=== PATIENT | female | born 1955 | race African-American/Black ===

== ENCOUNTER 2019-06-26 23:23 | Inpatient (IN) ==
[2019-06-26] MEDS ORDERED: DUONEB (A & A) INH ONE (23:24)
[2019-06-26] MEDS ORDERED: LASIX IV ONE (23:29)
[2019-06-26 23:38] LABS: BASO# 0.03 X1000 (0.0-0.2); BASO% 0.3 % (0.0-0.8); EOS# 0.58 X1000 (0.0-0.7); EOS% 6.5 % (0.0-10.0); IMM GRAN# 0.02 X1000 (0.0-0.04); IMM GRAN% 0.2 % (0.0-0.5); LYMPH# 3.57 X1000 (1.2-3.4); LYMPH% 40.1 % (20.5-51.1); MCH 31.2 PG (27-31); MCHC 31.8 g/dL (33-37); MONO# 0.81 X1000 (0.11-0.59); MONO% 9.1 % (1.7-9.3); MPV 12.7 FL (7.4-10.4); NEUT# 3.89 X1000 (1.4-6.5); NEUT% 43.8 % (42.2-75.2); PLT 148 X1000 (130-400); RBC 4.49 XMIL (4.2-5.4)
--- NOTE | 2019-06-26 23:38 | PROVIDER DOCUMENTATION ---
HPI-Respiratory General - General Chief Complaint: Shortness of Breath Stated Complaint: ASTHMA ATTACK Time Seen by Provider: 06/26/19 23:23 Source: patient Allergies/Adverse Reactions: Patient Allergies Allergy/AdvReac Type Severity Reaction Status Date / Time Penicillins Allergy Intermediate RASH Verified 10/04/18 14:14 Home Medications: Home Medication List Medication Instructions Recorded Confirmed Last Taken Type Hydrochlorothiazide 12.5 mg PO DAILY 01/15/12 10/04/18 10/05/14 History Multivitamin [Multivitamins] 1 tab PO BID 05/23/14 10/04/18 Unknown History Metformin [Glucophage] 500 mg PO BID 01/22/18 10/04/18 Unknown History Albuterol Sulfate [Proair Hfa] 2 puff INHALATION Q4H PRN 10/04/18 10/04/18 Unknown History Aspirin EC 81 mg PO DAILY 10/04/18 10/04/18 Unknown History Atorvastatin Calcium [Lipitor] 10 mg PO DAILY 10/04/18 10/04/18 Unknown History Escitalopram Oxalate [Lexapro] 10 mg PO DAILY 10/04/18 10/04/18 Unknown History Hydrocodone Bit/Acetaminophen 1 ea PO TID PRN 10/04/18 10/04/18 Unknown History [Hydrocodon-Acetaminophn 10-325] Lisinopril 5 mg PO DAILY 10/04/18 10/04/18 Unknown History Metoprolol [Lopressor] 50 mg PO BID 10/04/18 10/04/18 Unknown History Nitroglycerin Sl [Nitroglycerin] 0.4 mg SUBLINGUAL PRN PRN 10/04/18 10/04/18 Unknown History Tizanidine HCl 4 mg PO BID 10/04/18 10/04/18 Unknown History Varenicline [Chantix] 0.5 mg PO DIRECTED 10/04/18 10/04/18 Unknown History - History of Present Illness-Resp Nature of Presenting Problem: Patient is a 63 year old black female with history of HTN, S/P VT (07/2018), and asthma who presents by private care with worsening SOB, orthopnea, wheezing, and diaphoresis for past 2 days. Denies chest pain, fever, productive cough. Review of Systems - Adult - REVIEW OF SYSTEMS - ADULT Constitutional: denies: chills, fever Eyes: reports: no symptoms reported Ears, Nose, Mouth & Throat: denies: throat pain Cardiovascular: reports: orthopnea. denies: chest pain Respiratory: reports: cough, shortness of breath Gastrointestinal: denies: abdominal pain, diarrhea, nausea, vomiting Genitourinary: reports: no symptoms reported Musculoskeletal: reports: no symptoms reported Integumentary: reports: no symptoms reported Neurological: reports: no symptoms reported Psychiatric: reports: no symptoms reported Endocrine: reports: no symptoms reported Hematologic/Lymphatic: reports: no symptoms reported Allergic/Immunologic: reports: no symptoms reported All Other Systems: Reviewed and Negative Past History - Adult - PAST MEDICAL HISTORY-ADULT Review of Records: reports: Old Records Reviewed, Nursing Assessment Review, Medications Reviewed, Social history reviewed & non-contributory. Major Childhood Illnesses: reports: denies history Cardiovascular: reports: CAD, HTN Respiratory: reports: asthma, COPD, sleep apnea Gastrointestinal: reports: denies history Obstetrical/Gynecological: reports: denies history Genitourinary: reports: denies history Musculoskeletal: reports: denies history Neurological: reports: denies history Endocrine/Immune: reports: denies history Other Conditions: reports: denies history - PRIOR SURGERIES/PROCEDURES Surgical/Procedure History: reports: hysterectomy, BTL - IMMUNIZATION STATUS Childhood Immunizations: See Nurse Assessment Flu Vaccine: See Nurse Assessment - FAMILY HISTORY Family History: reviewed, not pertinent - SOCIAL HISTORY Smoking: quit greater than 1 year Substance Use: denies Alcohol Use Frequency: occasionally Living Situation: family Physical Exam-General - PHYSICAL EXAM-ADULT Initial Vital Signs Reviewed: Yes - CONSTITUTIONAL General Appearance: moderate distress, obese, other (dipahoretic) - EYES Eyes: other (clear) - NECK Neck: supple - RESPIRATORY Respiratory: decreased breath sounds, accessory muscle use, wheezing, other (labored respirations) - CARDIOVASCULAR Cardiovascular: regular rate, rhythm - GASTROINTESTINAL (ABDOMEN) Abdominal Exam: soft - LYMPHATIC Lymphatic: no adenopathy - MUSCULOSKELETAL Back Exam: no CVA tenderness Extremity: non-tender Peripheral Pulses: radial (R): 2+, radial (L): 2+ - SKIN Integumentary: normal turgor - NEUROLOGIC Neurologic: other (nonfocal) - PSYCHIATRIC Psych/Mental Status: oriented x 3, anxious - HEART Score HEART Score: History: Slightly Suspicious HEART Score: ECG: Normal HEART Score: Age: 45-65 Years HEART Score: Risk Factors for Atherosclerotic Disease: > or = 3 Risk Factors or History of Atherosclerotic Disease HEART Score: Troponin: < or = Normal Limit Total HEART Score:: 3 Progress - PLAN OF CARE/RESULTS Progress/Plan/Lab Results: Vital Signs - 8 hr 06/26/19 23:31 06/26/19 23:35 06/26/19 23:43 Temperature 98.6 F Pulse Rate 86 77 79 Respiratory Rate 30 H 22 25 H Blood Pressure 147/87 130/84 O2 Sat by Pulse Oximetry 82 L 94 L 99 Laboratory Results - last 24 hr 06/26/19 06/26/19 06/26/19 23:30 23:30 23:30 WBC 8.90 RBC 4.49 Hgb 14.0 Hct 44.0 MCV 98.0 MCH 31.2 H MCHC 31.8 L RDW Std Deviation 14.0 Plt Count 148 MPV 12.7 H Immature Gran % (Auto) 0.2 Neut % (Auto) 43.8 Lymph % (Auto) 40.1 [place] % (Auto) 9.1 Eos % (Auto) 6.5 Baso % (Auto) 0.3 Immature Gran # (Auto) 0.02 Neut # (Auto) 3.89 Lymph # (Auto) 3.57 H [place] # (Auto) 0.81 H Eos # (Auto) 0.58 Baso # (Auto) 0.03 Corrected WBC (Man) PT INR PTT (Actin FS) Specimen Type Sample Site pH pCO2 pO2 HCO3 Base Excess Oxyhemoglobin ABG O2 Sat (Calculated) ABG O2 Saturation ABG Carboxyhemoglobin ABG Methemoglobin Melchor Test A-a O2 Difference Total Hemoglobin Lactate Blood Gas Modality Vent Mode FiO2 % Inspiratory BiPAP Expiratory BiPAP Sodium Potassium Chloride Carbon Dioxide Anion Gap BUN Creatinine Estimated GFR/1.73 m2 BUN/Creatinine Ratio Glucose POC Glucose Calculated Osmolality Calcium Total Bilirubin AST ALT Alkaline Phosphatase Creatine Kinase Creatine Kinase Index CK-MB (CK-2) Troponin T High Sens 8 Wub-Q-Mnwtivemahv Pept 414 H Total Protein Albumin Globulin Albumin/Globulin Ratio Plasma Lactate Urine Source Urine Color Urine Turbidity Urine pH Ur Specific [place] Urine Protein Ur Glucose (Stick) Ur Ketones (Stick) Urine Blood Urine Nitrite Urine Bilirubin Urobilinogen Dipstick Urine Leukocytes Urine WBC (Auto) Urine RBC (Auto) U Epithel Cells (Auto) Urine Bacteria (Auto) 06/26/19 06/26/19 06/26/19 23:30 23:30 23:30 WBC RBC Hgb Hct MCV MCH MCHC RDW Std Deviation Plt Count MPV Immature Gran % (Auto) Neut % (Auto) Lymph % (Auto) [place] % (Auto) Eos % (Auto) Baso % (Auto) Immature Gran # (Auto) Neut # (Auto) Lymph # (Auto) [place] # (Auto) Eos # (Auto) Baso # (Auto) Corrected WBC (Man) PT INR PTT (Actin FS) Specimen Type Sample Site pH pCO2 pO2 HCO3 Base Excess Oxyhemoglobin ABG O2 Sat (Calculated) ABG O2 Saturation ABG Carboxyhemoglobin ABG Methemoglobin Melchor Test A-a O2 Difference Total Hemoglobin Lactate Blood Gas Modality Vent Mode FiO2 % Inspiratory BiPAP Expiratory BiPAP Sodium 141 Potassium 4.2 Chloride 102 Carbon Dioxide 27 Anion Gap 12 BUN 16 Creatinine 0.8 Estimated GFR/1.73 m2 > 60 BUN/Creatinine Ratio 20 Glucose 150 H POC Glucose Calculated Osmolality 285 Calcium 8.9 Total Bilirubin 0.20 AST 23 ALT 16 Alkaline Phosphatase 60 Creatine Kinase 199 H Creatine Kinase Index 1.3 CK-MB (CK-2) 2.66 Troponin T High Sens Tqi-R-Pqcnpmkfvre Pept Total Protein 7.2 Albumin 4.4 Globulin 3.0 Albumin/Globulin Ratio 2.0 Plasma Lactate 0.9 Urine Source Urine Color Urine Turbidity Urine pH Ur Specific [place] Urine Protein Ur Glucose (Stick) Ur Ketones (Stick) Urine Blood Urine Nitrite Urine Bilirubin Urobilinogen Dipstick Urine Leukocytes Urine WBC (Auto) Urine RBC (Auto) U Epithel Cells (Auto) Urine Bacteria (Auto) 06/26/19 06/26/19 06/26/19 23:30 23:30 23:47 WBC Cancelled RBC Cancelled Hgb Cancelled Hct Cancelled MCV Cancelled MCH Cancelled MCHC Cancelled RDW Std Deviation Cancelled Plt Count Cancelled MPV Cancelled Immature Gran % (Auto) Cancelled Neut % (Auto) Cancelled Lymph % (Auto) Cancelled [place] % (Auto) Cancelled Eos % (Auto) Cancelled Baso % (Auto) Cancelled Immature Gran # (Auto) Cancelled Neut # (Auto) Cancelled Lymph # (Auto) Cancelled [place] # (Auto) Cancelled Eos # (Auto) Cancelled Baso # (Auto) Cancelled Corrected WBC (Man) Cancelled PT 12.6 INR 0.90 PTT (Actin FS) 29.9 Specimen Type ARTERIAL Sample Site L RADIAL pH 7.36 pCO2 51 H* pO2 124 H HCO3 26.6 H Base Excess 2.3 Oxyhemoglobin 94.4 L ABG O2 Sat (Calculated) 18.9 ABG O2 Saturation 99.3 ABG Carboxyhemoglobin 3.80 H ABG Methemoglobin 1.1 Melchor Test YES A-a O2 Difference 97.0 Total Hemoglobin 14.1 Lactate 0.70 Blood Gas Modality BI PAP Vent Mode BIPAP FiO2 % 40.0 Inspiratory BiPAP 15.0 Expiratory BiPAP 6.0 Sodium Potassium Chloride Carbon Dioxide Anion Gap BUN Creatinine Estimated GFR/1.73 m2 BUN/Creatinine Ratio Glucose POC Glucose Calculated Osmolality Calcium Total Bilirubin AST ALT Alkaline Phosphatase Creatine Kinase Creatine Kinase Index CK-MB (CK-2) Troponin T High Sens Wex-H-Vkdtmlavqoo Pept Total Protein Albumin Globulin Albumin/Globulin Ratio Plasma Lactate Urine Source Urine Color Urine Turbidity Urine pH Ur Specific [place] Urine Protein Ur Glucose (Stick) Ur Ketones (Stick) Urine Blood Urine Nitrite Urine Bilirubin Urobilinogen Dipstick Urine Leukocytes Urine WBC (Auto) Urine RBC (Auto) U Epithel Cells (Auto) Urine Bacteria (Auto) 06/26/19 06/27/19 23:48 00:05 WBC RBC Hgb Hct MCV MCH MCHC RDW Std Deviation Plt Count MPV Immature Gran % (Auto) Neut % (Auto) Lymph % (Auto) [place] % (Auto) Eos % (Auto) Baso % (Auto) Immature Gran # (Auto) Neut # (Auto) Lymph # (Auto) [place] # (Auto) Eos # (Auto) Baso # (Auto) Corrected WBC (Man) PT INR PTT (Actin FS) Specimen Type Sample Site pH pCO2 pO2 HCO3 Base Excess Oxyhemoglobin ABG O2 Sat (Calculated) ABG O2 Saturation ABG Carboxyhemoglobin ABG Methemoglobin Melchor Test A-a O2 Difference Total Hemoglobin Lactate Blood Gas Modality Vent Mode FiO2 % Inspiratory BiPAP Expiratory BiPAP Sodium Potassium Chloride Carbon Dioxide Anion Gap BUN Creatinine Estimated GFR/1.73 m2 BUN/Creatinine Ratio Glucose POC Glucose 108 H Calculated Osmolality Calcium Total Bilirubin AST ALT Alkaline Phosphatase Creatine Kinase Creatine Kinase Index CK-MB (CK-2) Troponin T High Sens Lwm-Z-Aifhsrsivwn Pept Total Protein Albumin Globulin Albumin/Globulin Ratio Plasma Lactate Urine Source CLEAN CATCH Urine Color STRAW Urine Turbidity CLEAR Urine pH 6.5 Ur Specific [place] 1.012 Urine Protein 100 A Ur Glucose (Stick) NEGATIVE Ur Ketones (Stick) NEGATIVE Urine Blood NEGATIVE Urine Nitrite NEGATIVE Urine Bilirubin NEGATIVE Urobilinogen Dipstick NORMAL Urine Leukocytes NEGATIVE Urine WBC (Auto) <10 Urine RBC (Auto) <10 U Epithel Cells (Auto) <10 Urine Bacteria (Auto) NEGATIVE Orders Category Date Time Status Cardiac Monitoring DIRECTED Care 06/26/19 23:30 Active Cardiac Monitoring NOW Care 06/26/19 23:40 Active FSBS/Accucheck Result NOW Care 06/26/19 23:36 Active IV Insertion NOW Care 06/26/19 23:40 Completed NEWS Score >or=5:Order NEWS Bundle S.O. NOW Care 06/26/19 23:39 Completed Notify Provider of NEWS Score NOW Care 06/26/19 23:40 Active CHEST-1 VIEW [RAD] Stat Exams 06/26/19 23:42 Taken ABG [RESP] Routine Lab 06/26/19 23:47 Completed BLOOD CULTURE [BLDCUL] Stat Lab 06/27/19 00:12 Ordered CBC WITH ELECTRONIC DIFF [HEME] Stat Lab 06/26/19 23:30 Completed CK PROFILE [SP CHEM] Stat Lab 06/26/19 23:30 Results CMP [COMPREHENSIVE METABOLIC PANEL] [CHEM] Stat Lab 06/26/19 23:30 Completed LACTATE, PLASMA [CHEM] Q3H Lab 06/26/19 23:30 Completed LACTATE, PLASMA [CHEM] Q3H Lab 06/27/19 02:45 Uncollected LACTATE, PLASMA [CHEM] Q3H Lab 06/27/19 05:45 Uncollected PROTIME WITH INR [COAG] Stat Lab 06/26/19 23:30 Completed PTT [COAG] Stat Lab 06/26/19 23:30 Completed TROPONIN T HIGH SENSITIVITY Stat Lab 06/26/19 23:30 Completed URINALYSIS W/POSS RFLX CULT [URINALYSIS] Stat Lab 06/27/19 00:05 Received bnp [PRO B-NATRIURETIC PEPTIDE] Stat Lab 06/26/19 23:30 Completed Albuterol 2.5MG/Ipratrop 0.5MG [Duoneb (A & A)] Med 06/26/19 23:24 Disconti nued 3 ml INH NOW ONE Furosemide [Lasix] Med 06/26/19 23:29 Discontinued 60 mg IV NOW ONE Methylprednisolone Sod Succ [Solu-Medrol] Med 06/27/19 00:19 Discontinued 125 mg IV STAT ONE Rocephin 1 gm/Ns IV Now Med 06/27/19 00:26 Ordered CefTRIAXONE [Rocephin] 1 gm 0.9% Sodium Chloride Inj [Ns] 50 ml IV NOW Aerosol Treatments Routine Oth 06/26/19 23:24 Completed Aerosol Treatments Stat Oth 06/26/19 23:24 Completed BIPAP Stat Oth 06/26/19 23:28 Completed O2 Per Protocol Stat Oth 06/26/19 23:40 Active EKG [EKG] Stat Ther 06/26/19 23:31 Ordered Result Diagrams: 06/26/19 23:30 06/26/19 23:30 - REASSESSMENT Reassessment #1 Time Reassessed: 00:15 Status: improving Reassessment Comment: nonlabored respirations,nondiaphoretic after BIPAP - CONSULTS/PCP/HOSPITALIST Notification #1 *Consult/PCP/Hospitalist*: Dr. Canada, hospitalist Time Discussed: 00:25 Consult Disposition: Admit Departure - Departure Date of Disposition Decision: 06/27/19 Time of Disposition Decision: 00:34 DIAGNOSIS: Hypoxemia Asthma exacerbation Qualifiers: Asthma severity: mild Asthma persistence: intermittent Qualified Code(s): J45.21 - Mild intermittent asthma with (acute) exacerbation CAD (coronary artery disease) Qualifiers: Coronary Disease-Associated Artery/Lesion type: unspecified vessel or lesion type [place] vs. transplanted heart: [place] heart Associated angina: without angina Qualified Code(s): I25.10 - Atherosclerotic heart disease of [place] coronary artery without angina pectoris Diabetes Qualifiers: Diabetes mellitus type: type 2 Diabetes mellitus tank terminal gauger insulin use: unspecified tank terminal gauger insulin use status Disposition: ADMITTED INPATIENT 09 Certified Medical Emergency: Emergent Condition: Stable Referrals and Follow-Ups: None,PCP [Primary Care Provider] - - Critical Care Note This patient required my direct & personal management of CC.: Yes Total Time (mins): 65 Critical Care Statement: This patient required my direct personal management to treat or rule out processes, the absence of which, could potentiallly result in sudden, clinically significant life or limb threatening deterioration. Attestation - Physician/ MARIA FERNANDA Attestation Patient care was provided by Advanced Practice Provider:: No The physician spent face to face time with patient:: Yes Advanced Practice Provider documentation review:: Supervising physician onsite and consulted in the evaluation and care of this patient. The physician did have a face to face encounter with the patient.
[2019-06-27 00:01] LABS: BE 2.3 mmoll (-3.0-3.0); BLOOD TYPE ARTERIAL; HCO3-(ACT) 26.6 mmoll (20.0-26.0); METHB 1.1 % (0.0-1.5); O2(CT) 18.9 mL/dL (15.0-23.0); O2HB 94.4 % (95.0-99.0); PO2(98.6) 124 mmHg (60-100); SAMPLE BLOOD; SAO2 99.3 % (95.0-100.0); THB 14.1 g/dL (11.5-17.4); pH(98.6) 7.36 (7.35-7.45)
[2019-06-27 00:05] LABS: INR 0.9; PROTIME 12.6 Seconds (11.0-16.0)
[2019-06-27 00:05] LABS: PCO2(98.6) 51 mmHg (35-45)
[2019-06-27 00:06] LABS: PTT 29.9 Seconds (22.3-41.8)
[2019-06-27 00:06] LABS: ALLEN TEST YES; MODALITY BI PAP
[2019-06-27 00:07] LABS: AGAP 12; ALBUMIN 4.4 g/dL (3.5-5.0); ALKALINE PHOSPHATASE 60 U/L (32-104); BUN 16 mg/dL (8-22); CALCIUM 8.9 mg/dL (8.8-10.2); CHLORIDE 102 mmol/L (98-107); COSMO 285; CREATININE 0.8 mg/dL (0.5-0.9); ESTIMATED GFR > 60; GLUCOSE 150 mg/dL (70-104); GOT 23 U/L (10-30); GPT 16 U/L (10-36); POTASSIUM 4.2 mmol/L (3.5-5.1); SODIUM 141 mmol/L (136-145); TCO2 27 mmol/L (25-35); TOTAL PROTEIN 7.2 g/dL (6.3-8.3)
[2019-06-27] MEDS ORDERED: SOLU-MEDROL IV ONE (00:19)
[2019-06-27] MEDS ORDERED: ROCEPHIN 1 GM in NS 50 ML IV ONE (00:26)
[2019-06-27 00:27] LABS: URINE SOURCE CLEAN CATCH
[2019-06-27 00:27] LABS: CK INDEX 1.3 (0.0-2.5); CK-MB 2.66 ng/mL (0.0-5.0)
[2019-06-27 00:31] LABS: BILIRUBIN URINE NEGATIVE (NEGATIVE); BLOOD URINE NEGATIVE (NEGATIVE); COLOR STRAW; GLUCOSE URINE NEGATIVE (NEGATIVE); KETONE URINE NEGATIVE (NEGATIVE); LEUKOCYTES URINE NEGATIVE (NEGATIVE); NITRITE URINE NEGATIVE (NEGATIVE); PH URINE 6.5; PROTEIN URINE 100 mg/dL (NEGATIVE); SP GRAVITY URINE 1.012; TURBIDITY URINE CLEAR (CLEAR); UR EPITHELIAL CELLS <10 /HPF (<10); URINE BACTERIA NEGATIVE /HPF; URINE RBC <10 /HPF (<10); URINE WBC <10 /HPF (<10); UROBILINOGEN URINE NORMAL (NORMAL)
--- NOTE | 2019-06-27 02:41 | EKG Report ---
Test Performed on : 06/26/2019 11:39:16 PM Test Reason : SOB Blood Pressure : / mmHG Vent. Rate : 079 BPM Atrial Rate : 079 BPM P-R Int : 170 ms QRS Dur : 074 ms QT Int : 382 ms P-R-T Axes : 069 -39 039 degrees QTc Int : 438 ms Sinus rhythm. with occasional premature ventricular complexes. Left axis deviation Low voltage QRS Inferior infarct (cited on or before 04-AUG-2018) Cannot rule out Anterior infarct , age undetermined Abnormal ECG When compared with ECG of 04-AUG-2018 08:02, Minimal criteria for Anterior infarct are now present ST no longer elevated in Inferior leads ST no longer elevated in Anterolateral leads Unconfirmed Result
[2019-06-27] MEDS: DUONEB (A & A) INH SCH ×4 (03:25→21:49)
[2019-06-27] MEDS ORDERED: DUONEB (A & A) INH SCH (03:30)
[2019-06-27 06:51] LABS: AGAP 14; BASO# 0.02 X1000 (0.0-0.2); BASO% 0.4 % (0.0-0.8); BUN 17 mg/dL (8-22); CALCIUM 9.1 mg/dL (8.8-10.2); CHLORIDE 100 mmol/L (98-107); COSMO 284; CREATININE 0.6 mg/dL (0.5-0.9); EOS# 0.14 X1000 (0.0-0.7); EOS% 2.9 % (0.0-10.0); ESTIMATED GFR > 60; GLUCOSE 157 mg/dL (70-104); HEMATOCRIT 43.3 % (37.0-47.0); HEMOGLOBIN 13.7 g/dL (12.0-16.0); LYMPH# 0.74 X1000 (1.2-3.4); LYMPH% 15.4 % (20.5-51.1); MCH 30.7 PG (27-31); MCHC 31.6 g/dL (33-37); MCV 97.1 FL (81-99); MONO# 0.11 X1000 (0.11-0.59); MONO% 2.3 % (1.7-9.3); NEUT# 3.79 X1000 (1.4-6.5); PLT 120 X1000 (130-400); POTASSIUM 3.8 mmol/L (3.5-5.1); RBC 4.46 XMIL (4.2-5.4); RDW 13.9 % (11.5-14.5); SODIUM 140 mmol/L (136-145); TCO2 26 mmol/L (25-35)
--- NOTE | 2019-06-27 08:16 | Diag Imaging Result Doc PS360 ---
EXAM: CHEST-1 VIEW 06/26/2019 HISTORY: sob TECHNIQUE: AP portable at 0020 COMMENT: There are no focal opacities. The heart size and pulmonary vascularity are within normal limits. Compared to 01/29/2018 the lungs are not as well-expanded but considering differences in technique there has been no significant change. IMPRESSION: No acute disease. Electronically signed by Juan Mcgee 06/27/2019 8:14 AM
[2019-06-27] MEDS: SOLU-MEDROL IV SCH ×3 (10:52→19:32)
[2019-06-27] MEDS: HUMULIN R (PARKWAY) SUBQ SCH ×4 (12:48→20:31)
[2019-06-27] MEDS ORDERED: PNEUMOVAX 23 IM ONE (13:00)
[2019-06-27] MEDS: LEVAQUIN 750 MG/D5W 750 MG/150 ML IVPB IV SCH (13:10)
[2019-06-27] MEDS ORDERED: FLU VACCINE IM ONE (13:11)
--- NOTE | 2019-06-27 13:24 | Diag Imaging Result Doc PS360 ---
EXAM: CT ANGIOGRM PULMONARY ARTERIES 06/27/2019 HISTORY: suspected PE TECHNIQUE: This exam was performed using automated exposure control, adjustment of mA or kV according to patient size, and/or use of iterative reconstruction technique. COMMENT: There is no evidence of filling defects in the pulmonary arteries. There are 3-D MIPS. The aorta is not distended and there is no evidence of dissection. There are some calcifications in the left coronary artery. There are no abnormal fluid collections. There is no evidence of significant adenopathy. There are platelike opacities in both lower lobes which were not present on 01/07/2018. IMPRESSION: Bilateral lower lobe atelectasis. No evidence of pulmonary emboli. Electronically signed by Juan Mcgee 06/27/2019 1:22 PM
--- NOTE | 2019-06-27 14:41 | HISTORY AND PHYSICAL ---
CHIEF COMPLAINT: Shortness of breath, wheezing. HISTORY OF PRESENT ILLNESS: This is a 63-year-old female with a history of hypertension, hypertension, coronary artery disease, and asthma. She presented by POV complaining of increasing shortness of breath, orthopnea, wheezing over the prior 2 days. She denied any chest pain, fevers, or productive cough. She is on no stabilizing medications for her asthma. PAST MEDICAL HISTORY: 1. Asthma. 2. CAD status post SC in July 2018. 3. Hypertension. 4. Obstructive sleep apnea. PAST SURGICAL HISTORY: Hysterectomy and bilateral tubal ligation. SOCIAL HISTORY: She quit smoking about a year ago. She denies any illicit drug use. She does drink alcohol occasionally. ALLERGIES: Penicillin which causes a rash. HOME MEDICATIONS: A list will be obtained by the nursing staff and once verified will review and restart as appropriate. REVIEW OF SYSTEMS: Has been discussed with the patient with pertinent positives stated in the HPI. She denied any syncope or dizziness any chest pain or palpitations, hemoptysis, any nausea, vomiting, diarrhea, constipation, black or bloody vomitus or stools hematuria, dysuria, frequency urgency. PHYSICAL EXAMINATION: GENERAL: This is a 63-year-old female who is sitting up in the bed in the [facility] floor in no distress. VITAL SIGNS: Blood pressure is 121/80 with heart rate of 77, respirations are 18, temperature is 98 degrees with O2 saturations ranging 95 to 98 percent on 3 L nasal cannula. EYES: Pupils equal, round, react to light. EOMs are intact. Sclerae anicteric. HEENT: Head is normocephalic, atraumatic. Mucous membranes are moist. NECK: Supple with trachea midline. CARDIOVASCULAR: Regular rate and rhythm. S1 and S2 appreciated. She has no lower extremity edema. Reports calves nontender bilateral with peripheral pulses palpable x4 extremities. PULMONARY: Expiratory wheezes scattered throughout. Chest rises and falls symmetric with respiration. No increased work of breathing noted. GASTROINTESTINAL: Abdomen is soft, nontender, nondistended with bowel sounds in all 4 quadrants. GENITOURINARY: No suprapubic nor CVA tenderness. SKIN: Warm and dry. NEUROLOGIC: She is alert and oriented x3. LABS: WBC is 4.8 with hemoglobin 13.7, hematocrit 43.3, platelets of 120,000. Sodium 140, potassium 3.8, BUN 17, creatinine 0.6, glucose of 157. Urinalysis is essentially negative. Blood cultures x2 are pending. ABGs, pH is 7.3 with pCO2 51, PO2 124, and bicarb 26.6. These are on BiPAP at 40% 15/6. Chest x-ray revealed no acute distress. No focal opacities. Heart size and pulmonary vascularity are normal. ASSESSMENT: 1. Acute hypercapnic respiratory failure. 2. Acute hypoxemic respiratory failure with room air saturation of 82% on arrival to the emergency room. 3. Acute asthma exacerbation. 4. History of coronary artery disease. 5. Diabetes mellitus type 2. PLAN: The patient has will be admitted to the medical-surgical floor placed on telemetry. We will continue 1. supplemental oxygen with bronchodilators and IV steroids. 2. Antibiotics Levaquin 750 q.12 hours. 3. Obtain echocardiogram. 4. CTA pulmonary. 5. Pattern blood glucose with sliding scale insulin. 6. BMP and CBC in the morning. 7. peak flows b.i.d. 8. Deep venous thrombosis prophylaxis and gastrointestinal prophylaxis. 9. Further treatments pending hospital course. Plan was discussed with Dr. Canada. Dictated by TANIYA Neri for Raffaele Diamond MD Addendum: Patient seen and examined by myself. Agree with TANIYA note. It reflects my assessment and plan. Patient is being admitted to hospital for acute hypoxemic respiratory failure secondary to asthma exacerbation. Will provide breathing treatments and IV steroids and will monitor patient closely. cc: TANIYA Neri MD [facility]
[2019-06-28] MEDS: SOLU-MEDROL IV SCH ×3 (01:21→17:57)
[2019-06-28] MEDS: DUONEB (A & A) INH SCH ×4 (03:35→21:12)
[2019-06-28] MEDS: HUMULIN R (PARKWAY) SUBQ SCH ×5 (06:06→20:54)
[2019-06-28] MEDS ORDERED: NORCO-10 PO PRN (06:39)
[2019-06-28 07:27] LABS: AGAP 15; BUN 18 mg/dL (8-22); CALCIUM 9.4 mg/dL (8.8-10.2); CHLORIDE 99 mmol/L (98-107); COSMO 284; CREATININE 0.7 mg/dL (0.5-0.9); ESTIMATED GFR > 60; GLUCOSE 214 mg/dL (70-104); POTASSIUM 3.5 mmol/L (3.5-5.1); SODIUM 138 mmol/L (136-145); TCO2 25 mmol/L (25-35)
[2019-06-28 07:34] LABS: EOS# 0.01 X1000 (0.0-0.7); EOS% 0.1 % (0.0-10.0); HEMATOCRIT 42.7 % (37.0-47.0); HEMOGLOBIN 13.5 g/dL (12.0-16.0); IMM GRAN# 0.02 X1000 (0.0-0.04); IMM GRAN% 0.2 % (0.0-0.5); LYMPH# 0.64 X1000 (1.2-3.4); LYMPH% 6.6 % (20.5-51.1); MCH 30.3 PG (27-31); MCHC 31.6 g/dL (33-37); MCV 95.7 FL (81-99); MONO# 0.35 X1000 (0.11-0.59); MONO% 3.6 % (1.7-9.3); MPV 14.1 FL (7.4-10.4); NEUT# 8.61 X1000 (1.4-6.5); NEUT% 89.5 % (42.2-75.2); PLT 136 X1000 (130-400); RBC 4.46 XMIL (4.2-5.4); RDW 14.1 % (11.5-14.5); WBC 9.63 X1000 (4.8-10.8)
[2019-06-28 07:45] LABS: HEMOGLOBIN A1C 5.6 % (4.8-6.0)
[2019-06-28] MEDS ORDERED: GLUCOPHAGE PO SCH (08:00)
[2019-06-28] MEDS: LOPRESSOR PO SCH ×2 (09:09→20:57)
[2019-06-28] MEDS: PRINIVIL PO SCH (09:09)
[2019-06-28] MEDS: HYDROCHLOROTHIAZIDE PO SCH (09:09)
[2019-06-28] MEDS: ASPIRIN EC PO SCH (09:09)
[2019-06-28] MEDS: LEXAPRO PO SCH (09:09)
[2019-06-28 09:20] LABS: BANDS 2 % (0-1); LYMPHS 11 % (21-51); MONO 2 % (1-9); SEGS 85 % (42-75)
[2019-06-28] MEDS: LEVAQUIN 750 MG/D5W 750 MG/150 ML IVPB IV SCH (13:10)
[2019-06-28] MEDS: GLUCOPHAGE PO SCH (17:57)
[2019-06-28] MEDS: LIPITOR PO SCH (20:57)
--- NOTE | 2019-06-28 21:59 | PROGRESS NOTE ---
DATE: 06/28/2019 SUBJECTIVE: Patient notes that she is feeling a lot better. Still having some shortness of breath and coughing. Denies any fevers chills. PHYSICAL EXAMINATION: Vital Signs: Reviewed. Temperature 98, pulse 91, respiratory rate 18, BP 133/79. General: The patient is awake. She is in minimal distress. HEENT: Normocephalic, atraumatic. Neck: Supple. Cardiovascular: Regular rate. No murmurs. Chest: Clear. No current wheezing. No crackles. Improved air movement. Abdomen: Soft, nondistended. Extremities: Moves all extremities. ASSESSMENT: 1. Chronic obstructive pulmonary disease with exacerbation. 2. Acute hypoxic respiratory failure. O2 saturation was 82% on room air, currently improving. 3. Known coronary artery disease. 4. Diabetes. PLAN: We are going to continue the patient in the hospital, decrease Solu-Medrol to 80 every 8 hours. We will follow her blood sugars. A1c at home is 5.6. Continue antibiotics. cc: Doyle Hutton MD
[2019-06-29] MEDS: SOLU-MEDROL IV SCH ×4 (02:35→18:13)
[2019-06-29] MEDS: DUONEB (A & A) INH SCH ×4 (04:00→21:45)
[2019-06-29 06:32] LABS: HEMATOCRIT 41.6 % (37.0-47.0); HEMOGLOBIN 13.3 g/dL (12.0-16.0); IMM GRAN# 0.03 X1000 (0.0-0.04); IMM GRAN% 0.3 % (0.0-0.5); LYMPH# 0.71 X1000 (1.2-3.4); MCH 30.9 PG (27-31); MCV 96.5 FL (81-99); MONO# 0.39 X1000 (0.11-0.59); MONO% 3.3 % (1.7-9.3); NEUT# 10.61 X1000 (1.4-6.5); NEUT% 90.4 % (42.2-75.2); PLT 138 X1000 (130-400); RBC 4.31 XMIL (4.2-5.4); RDW 14.3 % (11.5-14.5); WBC 11.74 X1000 (4.8-10.8)
[2019-06-29 06:45] LABS: AGAP 14; BUN 19 mg/dL (8-22); CALCIUM 9.3 mg/dL (8.8-10.2); CHLORIDE 99 mmol/L (98-107); COSMO 279; CREATININE 0.6 mg/dL (0.5-0.9); ESTIMATED GFR > 60; GLUCOSE 154 mg/dL (70-104); POTASSIUM 3.9 mmol/L (3.5-5.1); SODIUM 137 mmol/L (136-145); TCO2 25 mmol/L (25-35)
[2019-06-29] MEDS: HUMULIN R (PARKWAY) SUBQ SCH ×4 (06:46→20:45)
[2019-06-29] MEDS: GLUCOPHAGE PO SCH ×2 (08:56→18:11)
[2019-06-29] MEDS: LOPRESSOR PO SCH ×2 (08:56→21:07)
[2019-06-29] MEDS: PRINIVIL PO SCH (08:56)
[2019-06-29] MEDS: HYDROCHLOROTHIAZIDE PO SCH (08:56)
[2019-06-29] MEDS: ASPIRIN EC PO SCH (08:56)
[2019-06-29] MEDS: LEXAPRO PO SCH (08:56)
[2019-06-29 09:31] LABS: LYMPHS 6 % (21-51); MONO 3 % (1-9); SEGS 91 % (42-75)
[2019-06-29] MEDS: LEVAQUIN 750 MG/D5W 750 MG/150 ML IVPB IV SCH (11:44)
--- NOTE | 2019-06-29 20:04 | ECHO REPORT ---
ORDER DATE: 06/27/2019 MEASUREMENTS: Septal thickness 1.5, left ventricular internal diameter end-diastole 3.6, posterior wall thickness 1.5, left ventricular internal diameter end-systole 2.3, aortic root 3.4, left atrium 3.5. SUMMARY: 1. Fair quality study. 2. Aortic valve not well imaged, but appears to open adequately on 2-dimensional images. The peak gradient across the aortic valve is less than 10 mmHg. There is mild aortic regurgitation. Mitral and tricuspid valves are without evidence of structural abnormality, while pulmonic valve is not well demonstrated. The aortic root is normal in size. The proximal ascending aorta is mildly dilated. 3. Normal left ventricular chamber size with moderate concentric left ventricular hypertrophy suggested. The estimated left ventricular ejection fraction appears to be at least 60%. There is hypokinesis of the apical septum and akinesis of the apex of the left ventricle. No other wall motion abnormalities can be appreciated. Doppler suggests grade 1 left ventricular diastolic dysfunction. The left atrium, right atrium, and right ventricle are normal in size with grossly preserved right ventricular systolic function. 4. No pericardial effusion. 5. Appearance of inferior vena cava suggests normal central venous pressure. CONCLUSIONS: 1. Mild aortic regurgitation. 2. Mild dilatation of proximal ascending aorta. 3. Moderate concentric left ventricular hypertrophy with an estimated left ventricular ejection fraction of approximately 60%, in setting of hypokinesis of the apical septum and akinesis of the apex of the left ventricle. 4. Grade 1 left ventricular diastolic dysfunction is suggested. cc: MD Raffaele Hugo MD
[2019-06-29] MEDS: LIPITOR PO SCH (21:06)
--- NOTE | 2019-06-29 22:39 | PROGRESS NOTE ---
DATE: 06/29/2019 SUBJECTIVE: Patient notes she is feeling a lot better, a lot less shortness of breath. Denies any fevers or chills. OBJECTIVE: Vital signs: Temperature 98, pulse 70, respiratory rate 18, BP 123/58. General: Patient is pleasant. She is in no current distress. HEENT: Normocephalic. Neck: Supple. Cardiovascular: Regular rate. Chest: Clear, nonlabored. Abdomen: Soft, nondistended. Extremities: Moves all extremities. ASSESSMENT: 1. Acute hypercapnic respiratory failure. 2. Diabetes with A1c at home 5.6. 3. Asthma exacerbation. PLAN: Overall, the patient is better. We are going to wean her Solu-Medrol. Continue antibiotics, hopefully discharge home tomorrow. cc: Doyle Hutton MD
[2019-06-30] MEDS: DUONEB (A & A) INH SCH (04:10)
[2019-06-30] MEDS: HUMULIN R (PARKWAY) SUBQ SCH (06:47)
[2019-06-30 07:20] LABS: AGAP 12; BUN 21 mg/dL (8-22); CALCIUM 9.2 mg/dL (8.8-10.2); CHLORIDE 100 mmol/L (98-107); COSMO 283; CREATININE 0.7 mg/dL (0.5-0.9); ESTIMATED GFR > 60; GLUCOSE 113 mg/dL (70-104); POTASSIUM 3.6 mmol/L (3.5-5.1); SODIUM 140 mmol/L (136-145); TCO2 28 mmol/L (25-35)
[2019-06-30 07:29] LABS: EOS# 0.02 X1000 (0.0-0.7); EOS% 0.2 % (0.0-10.0); HEMOGLOBIN 13.6 g/dL (12.0-16.0); IMM GRAN# 0.03 X1000 (0.0-0.04); IMM GRAN% 0.3 % (0.0-0.5); LYMPH# 2.13 X1000 (1.2-3.4); MCH 31.3 PG (27-31); MCHC 32.4 g/dL (33-37); MCV 96.8 FL (81-99); MONO# 0.74 X1000 (0.11-0.59); MONO% 7.7 % (1.7-9.3); NEUT# 6.74 X1000 (1.4-6.5); NEUT% 69.8 % (42.2-75.2); PLT 132 X1000 (130-400); RBC 4.34 XMIL (4.2-5.4); RDW 14.1 % (11.5-14.5); WBC 9.66 X1000 (4.8-10.8)
[2019-06-30 07:31] VITALS: BP 134/79
[2019-06-30 08:42] LABS: LYMPHS 25 % (21-51); MONO 5 % (1-9); SEGS 70 % (42-75)
[2019-06-30] MEDS: PRINIVIL PO SCH (09:04)
[2019-06-30] MEDS: LEXAPRO PO SCH (09:04)
[2019-06-30] MEDS: HYDROCHLOROTHIAZIDE PO SCH (09:04)
[2019-06-30] MEDS: ASPIRIN EC PO SCH (09:04)
[2019-06-30] MEDS: LOPRESSOR PO SCH (09:04)
[2019-06-30] MEDS: GLUCOPHAGE PO SCH (09:04)
--- NOTE | 2019-07-01 17:49 | DISCHARGE SUMMARY ---
ADMISSION DATE: 06/27/2019 DISCHARGE DATE: 06/30/2019 ADDENDUM: Patient seen and examined by myself. Full note discussed with nurse practitioner. Patient presented to the hospital with increased work of breathing, shortness of breath, diagnosed with acute hypercapnic and hypoxic respiratory failure. O2 saturation was 82% on room air when she 1st got to the hospital. She have a history of diabetes with an A1c of 5.6. She was admitted, placed on antibiotics, Levaquin and Solu-Medrol. Thankfully over time, her symptoms improved. On discharge she is awake, alert. She is feeling better. She is requiring no oxygen. 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 Therefore, she is to be discharged home. She will follow up outpatient with treatment facility of choice. cc: Doyle Hutton MD
--- NOTE | 2019-07-02 17:59 | DISCHARGE SUMMARY ---
ADMISSION DATE: 06/27/2019 DISCHARGE DATE: 06/30/2019 DIAGNOSES: 1. Acute hypercapnic and hypoxemic respiratory failure resolved. 2. Diabetes mellitus with A1c of 5.6. 3. Asthma exacerbation. 4. Chronic obstructive pulmonary disease with acute exacerbation, resolved. DIAGNOSTICS: Chest x-ray revealed no acute disease. CTA pulmonary arteries bilateral lower lobe atelectasis. No evidence of pulmonary emboli. Microbiology, blood cultures x2 revealed no growth after 48 hours. HOSPITAL COURSE: Ms. Oliva presented to the emergency room complaining of shortness of breath and wheezing. She was noted to have a room air saturation of 82% on arrival to the hospital. She was given supplemental oxygen, thankfully this was able to be weaned and her O2 saturations have been 94 to 97 percent on room air. She was treated with bronchodilators, IV steroids and antibiotics. She remained afebrile. Echocardiogram revealed ejection fraction of 60% in the setting of hypokinesis of the apical septum and akinesis of the apex with a grade 1 ventricular diastolic dysfunction . DISCHARGE PHYSICAL EXAM: Vital Signs: Blood pressure 134/79 with a heart rate of 65, respirations 18, temperature 97.6 degrees with room air saturations 95%. Cardiovascular: Regular rate and rhythm. S1 and S2 appreciated. She denies any calf tenderness. Peripheral pulses are palpable x4 extremities. Pulmonary: Breath sounds are clear with no increased work of breathing noted. Chest rise falls symmetric respiration. Gastrointestinal: Abdomen soft, nontender, nondistended with bowel sounds in all 4 quadrants. Neurologic: She is alert, oriented x3. DISCHARGE MEDICATIONS: 1. Aspirin 81 mg p.o. daily. 2. Lipitor 10 mg p.o. daily. 3. Lexapro 10 mg p.o. daily. 4. Hydrochlorothiazide 12.5 p.o. daily. 5. [place] 10 t.i.d. p.r.n. 6. Lisinopril 5 mg p.o. daily. 7. Metformin 500 mg p.o. b.i.d. 8. Steroid Dosepak take as directed. 9. Lopressor 50 mg p.o. b.i.d. 10. Levaquin 500 mg p.o. daily for 4 days FOLLOWUP: Dr. Blair Subramanian she is to call to schedule appointment to be seen in the next 1 to 2 weeks sooner if needed. She has been instructed to call to be seen sooner or return to the emergency room for any syncope, dizziness, chest pain, palpitations, temperature greater than 10, increasing shortness of breath, any nausea, vomiting, diarrhea, constipation, black or bloody vomitus or stools any hematuria, dysuria, frequency, urgency. She is being discharged home in stable condition with family members. TIME SPENT: Greater than 30 minutes. Dictated by TANIYA Neri for Doyle Hutton MD cc: TANIYA Neri MD
== END 2019-06-30 10:15 | disposition home or self-care (01) | DRG 202 ==
LOC: P.ED 23:23 → P.EDIPHOLD 06-27 02:01 → SUATTDRO 06-27 02:01 → P.MEDSURG 06-27 08:22
PROVIDERS: ATTEND Family Medicine